=== PATIENT | male | born 1995 | race African-American/Black ===

== ENCOUNTER 2018-01-11 15:52 | Emergency (ER) | payer MEDICAID ==
[~2018-01-11] VITALS: Ht 172.7 cm; Wt 64.0 kg
[2018-01-11 19:06] VITALS: BP 121/55
== END 2018-01-11 19:10 | disposition home or self-care (01) ==
LOC: ER 16:44
DX: H10.9 Unspecified conjunctivitis (principal)
CPT/HCPCS: 99283